=== PATIENT | female | born 1940 | race Caucasian/White ===

== ENCOUNTER 2020-11-02 00:35 | Outpatient (CLI) | payer MEDICARE, SELFPAY ==
[2020-11-02 18:51] LABS: SARS-CoV-2 RNA PCR Negative
== END 2020-11-02 00:36 | disposition home or self-care (01) ==
LOC: ANHCOVIDDT 00:36
PROVIDERS: Visit Provider Urology
DX: Z01.818 Encounter for other preprocedural examination (principal); Z20.828 Contact with and (suspected) exposure to other viral communicable diseases
CPT/HCPCS: 87635; C9803; U0003

== ENCOUNTER 2020-11-02 11:09 | Outpatient (CLI) | payer MEDICARE, SELFPAY ==
--- NOTE | 2020-11-02 11:13 | ECG_ITS ---
Measurements Intervals [place] Rate: 87 P: 22 WV: 213 QRS: -14 QRSD: 83 T: 10 QT: 334 QTc: 404 Interpretive Statements SINUS RHYTHM WITH FIRST DEGREE AV BLOCK EARLY PRECORDIAL R/S TRANSITION LOW QRS VOLTAGE IN PRECORDIAL LEADS VOLTAGE CRITERIA FOR LVH MINIMAL Q WAVES- HIGH LATERAL LEADS BORDERLINE T WAVE ABNORMALITY- INFERIOR LEADS BASELINE ARTIFACT- I, II, III, AVR, AVL, AVF, V1 ABNORMAL ECG Electronically Signed On 11-02-2020 12:19:07 REPACKER by Abbe Doss D.O.
[2020-11-02 11:48] LABS: Basophils Absolute Auto 0.1 K/mm3 (0.0-0.1); Basophils Percent Auto 0.7 % (0.2-1.2); Hematocrit 41.7 % (37.0-47.0); Hemoglobin 13.2 g/dL (12.0-15.0); Immature Granulocyte Absolute 0.03 K/mm3 (0.00-0.031); Immature Granulocyte Percent A 0.4 % (0-0.5); Lymphocytes Absolute Auto 1.42 K/mm3 (0.9-3.2); Lymphocytes Percent Auto 19.5 % (18.3-44.2); Mean Corpuscular HGB Conc 31.7 g/dl (32-36); Mean Corpuscular Hemoglobin 28.6 pg (26-34); Mean Corpuscular Volume 90.5 fl (80-100); Mean Platelet Volume 9.2 fl (7.4-10.4); Monocytes Absolute Auto 0.4 K/mm3 (0.1-0.6); Monocytes Percent Auto 5.5 % (2.6-8.5); Neutrophils Absolute Auto 5.4 K/mm3 (1.3-6.7); Neutrophils Percent Auto 73.9 % (45.5-73.1); Platelet Count Result 293 k/mm3 (150-375); Red Blood Count 4.61 M/mm3 (4.2-5.4); White Blood Count 7.3 K/mm3 (4.5-10.0)
[2020-11-02 11:58] LABS: INR 0.9; Partial Thromboplastin Time 28.6 SECONDS (22.3-36.8); Prothrombin Time 12.7 Seconds (11.1-14.7)
[2020-11-02 12:07] LABS: Anion Gap 4 mmol/L (8-16); Blood Urea Nitrogen 17 mg/dL (7-17); Calcium 9.2 mg/dL (8.4-10.2); Carbon Dioxide 35 mmol/L (22-30); Chloride 101 mmol/L (98-107); Estimated Glomerular Filt Rate > 60; Glucose 105 mg/dL (65-105); Potassium 4.1 mmol/L (3.4-5.0); Sodium 140 mmol/L (137-145)
== END 2020-11-02 11:10 | disposition home or self-care (01) ==
PROVIDERS: PCP Internal Medicine; Visit Provider Urology
DX: Z01.818 Encounter for other preprocedural examination (principal); E78.00 Pure hypercholesterolemia, unspecified; D49.4 Neoplasm of unspecified behavior of bladder; I44.0 Atrioventricular block, first degree
CPT/HCPCS: 36415; 80048; 85025; 85610; 85730; 93005

== ENCOUNTER 2020-11-05 01:51 | Day surgery (SDC) | payer MEDICARE, SELFPAY ==
[2020-11-01 14:11] VITALS: BMI 38.5
[2020-11-05] VITALS (9 sets, daily range): BP systolic 113–160; BP diastolic 59–87; PULSE 61–91; RESP 14–18; TEMP 36.5–36.7; O2SAT 94–98; BMI 39.0
--- NOTE | ~2020-11-05 | XR_ITS ---
EXAMINATION: XR retrograde pyelogram LT DATE: 11/05/2020 07:56 INDICATION: Left retrograde pyelogram TECHNIQUE: 4 fluoroscopic spot images of the abdomen and pelvis were obtained during procedure perfor med by Dr. Wagoner. Radiologist was not present for the imaging or procedure. The amount of fluorosc opy time used during this procedure was 0.1 minutes. COMPARISON: None. FINDINGS: Cannulation and retrograde contrast injection into the left ureter demonstrates a normal-appearing le ft ureter and renal collecting system. No hydroureteronephrosis, stones or urothelial irregularities appreciated. Severe lumbar spondylosis. IMPRESSION: 1. Normal left retrograde pyelogram. See procedure note for further detail. Reviewed, dictated and finalized at location A. LO[employer] DISPATCHER
[2020-11-05] MEDS: LACTATED RINGERS 1,000 ML 30 ML IV CONT ×2 (06:31→09:07)
--- NOTE | 2020-11-05 06:42 | P.PNAN_ITS ---
Anes - Initial Pre Proc Eval Procedure: Operation Date: 11/05/20 07:30 Proposed Procedures p Trans Urethral Resection Bladder Tumor - Reza Wagoner MD Date/Time: 11/05/20 06:42 Surgeon: Reza Wagoner MD Pre Op Diagnosis: bladder tumor Patient Data Age: 80 Gender: F Height: 1.7 m Weight: 113.2 kg Last Vital Signs Temp 36.7 C 11/05/20 06:34 Pulse 90 11/05/20 06:34 Resp 18 11/05/20 06:34 BP 153/87 H 11/05/20 06:34 Pulse Ox 97 11/05/20 06:34 Allergies Allergy/AdvReac Type Severity Reaction Status Date / Time No Known Allergies Allergy Verified 11/05/20 06:10 Home Medications Medication Instructions Recorded Confirmed Type atorvastatin 20 mg PO HS 11/01/20 11/05/20 History cholecalciferol (vitamin D3) 50 mcg PO DAILY 11/01/20 11/05/20 History vit C,O-Mb-hmgis-lutein-zeaxan 2 tablet PO DAILY 11/01/20 11/05/20 History [PreserVision AREDS-2] ciprofloxacin HCl 500 mg PO BID 11/05/20 11/05/20 History ECG: Date of Service: 11/02/20 Procedure(s): CA 12 lead EKG Accession Number(s): [id number] cc: ~ Measurements Intervals [place] Rate: 87 P: 22 [place]: 213 QRS: -14 QRSD: 83 T: 10 QT: 334 QTc: 404 Interpretive Statements SINUS RHYTHM WITH FIRST DEGREE AV BLOCK EARLY PRECORDIAL R/S TRANSITION LOW QRS VOLTAGE IN PRECORDIAL LEADS VOLTAGE CRITERIA FOR LVH MINIMAL Q WAVES- HIGH LATERAL LEADS BORDERLINE T WAVE ABNORMALITY- INFERIOR LEADS BASELINE ARTIFACT- I, II, III, AVR, AVL, AVF, V1 ABNORMAL ECG Electronically Signed On 11-02-2020 12:19:07 [employer] LOOM CONTROL by Abbe Doss D.O. Dictated By: Abbe Doss DO 11/02/20 1157 Patient hx anesthesia problems: none Family hx anesthesia problems: none PMFSH Past Medical History Medical History (Updated 11/05/20 @ 06:43 by Elvis Zhong MD) Hypercholesterolemia Obesity Osteoarthritis Social History Social History Smoking packs per day: 0.5 Smoking cigarettes per day: 10.0 Years smoked: 10 Smoking pack-years: 5.00 Smoking status: Former smoker Tobacco type: cigarettes Second hand tobacco smoke exposure: No Smoking end date: 11/26/69 Living arrangements: with family Spiritual care concerns: No Anes - Eval Final PreProcedure Day of Procedure 11/05/20 06:42 Patient weight: obese Heart: regular rate and rhythm Lungs: clear to auscultation and normal air movement Airway: Mallampati scale class II Neurological: alert and oriented Last oral intake: >/= 8 hours ASA classification: III Emergent: no Anesthetic plan: proceed Anesthesia type and monitoring: general LMA and ETT Informed Consent: The patient's anesthetic plan and its attendant risks and benefits were discussed with the patient/family/POA. Questions were solicited and answers provided to the satisfaction of the patient/family/POA.
--- NOTE | 2020-11-05 07:00 | WPDHPUPDATE1 ---
History and Physical Update Update Date/Time: 11/05/20 07:00 History and Physical has been reviewed, including an updated exam of the patient. There are NO changes in the patient's condition. Risks, benefits, and alternatives have been discussed and questions answered. Patient agrees to proceed with procedure. Proceed with TURBT , possible left retrograde , ureteroscopy.
[2020-11-05] MEDS: ceFAZolin 2 GM/D5W 50 ML 2 GM/50 ML BAG IVPB (07:26)
--- NOTE | 2020-11-05 08:25 | PM.PROC ---
Procedure Note - Detailed Date of procedure: 11/05/20 Pre-op diagnosis: bladder tumor Post-op diagnosis: same Procedure performed: Cystoscopy, left retrograde pyelogram, transurethral resection of large bladder tumor approximately 5 cm area Description of procedure: patient is taken to the operative suite and correctly identified. Once anesthesia was obtained she was placed in a dorsal lithotomy position and prepped and draped usual sterile fashion. Twenty-two Georgian scope inserted into the bladder. The bladder is inspected in its entirety. She has a broad-based tumor along the left lateral wall and floor. The area probably encompasses approximately 5 cm. Both ureteral orifices normal anatomic position. Given the mild hydro on CT scan we proceeded with a retrograde pyelogram. Five Georgian Fritch was placed into the left ureteral orifice and contrast was injected. The ureter showed no evidence of filling defects. There was no evidence of a UPJ obstruction at this time. No filling defects noted in the collecting system. We exchanged the scope out for a 24 Georgian resectoscope sheath. We then resected the tumor. Three specimens were obtained. The tumor, tumor base, and deep tumor base. There is some concern regarding the depth of invasion whether muscle is involved. There was good hemostasis at termination of procedure. 2% viscous lidocaine was inserted into urethra an [address] Jaffe was placed. 10 cc was placed in the balloon. This was connected to continuous bladder irrigation. She is taken recovery room stable condition. We will wean the CBI to off and she will be discharged home with a catheter for a day or 2. 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 She develops any problems she will call so we can deal with appropriately. Further recommendations will be made pending her final path report Anesthesia: GLMA Surgeon: Reza Wagoner MD Drains: Yes Packing: No Pathology: yes Complications: No immediate complications Condition: stable Disposition: PACU
[2020-11-05] MEDS: ONDANSETRON INJ 4 MG/2 ML VIAL IV PUSH (09:04)
[2020-11-05] MEDS: fentaNYL CITRATE INJ (*CRX) 100 MCG/2 ML VIAL 25 MCG IV PUSH (09:06)
[2020-11-05] MEDS: SCOPOLAMINE 1.5 MG PATCH TRANSDERM (10:14)
== END 2020-11-05 11:20 | disposition home or self-care (01) ==
PROVIDERS: PCP Internal Medicine; Visit Provider Urology
PROC: 0TBB8ZZ Excision of Bladder, Via Natural or Artificial Opening Endoscopic (ICD-10-PCS; CPT 52235; principal; 2020-11-05 07:30)
DX: C67.8 Malignant neoplasm of overlapping sites of bladder (principal); E78.00 Pure hypercholesterolemia, unspecified; M19.90 Unspecified osteoarthritis, unspecified site; E66.9 Obesity, unspecified; Z68.39 Body mass index [BMI] 39.0-39.9, adult; Z87.891 Personal history of nicotine dependence
CPT/HCPCS: 52235; 36415; 74420; 80048; 85025; 85610; 85730; 87635; 88305; 93005; A9270; C1758; C9803; J0330; J0690; J1100; J2405; J2704; J2710; J3010; J7120; Q9966; U0003